=== PATIENT | male | born 1970 | race Two or more races ===

== ENCOUNTER 2019-07-08 23:30 | Emergency (ER) | payer OTHER ==
[~2019-07-08] VITALS: Ht 177.8 cm; Wt 99.8 kg
[2019-07-08] MEDS ORDERED: LIDOCAINE VISCOUS 2% UD 15 ML UDC ONE (23:57)
[2019-07-08] MEDS ORDERED: MAG HYDROX/AL HYDROX/SIMETH 30 ML UDC ONE (23:57)
[2019-07-09] MEDS ORDERED: MAG HYDROX/AL HYDROX/SIMETH 30 ML UDC PO ONE
[2019-07-09] MEDS ORDERED: LIDOCAINE VISCOUS 2% UD 15 ML UDC MM ONE
--- NOTE | 2019-07-09 00:44 | NUR ---
pt bibRA. C/O "HAVING EPIGASTRIC PAIN, FEELS LIKE GERD" -SOB AOX4. VSS. AMBULATORY
[2019-07-09] MEDS ORDERED: ACETAMINOPHEN ES 500 MG TABLET ONE (00:50)
[2019-07-09] MEDS ORDERED: ACETAMINOPHEN 325 MG TABLET PO ONE (01:00)
--- NOTE | 2019-07-09 01:19 | NUR ---
PT STATING: "FEELING MUCH BETTER AT THIS TIME, NO MORE EPIGASTRIC PAIN" PT MEDICATED FOR COMPLAINTS OF HEADACHE. VSS. AOX4. AMBULATORY.
[2019-07-09 01:30] VITALS: BP 138/84
[2019-07-12 10:40] LABS: HEMATOCRIT 45 % (39-51); HEMOGLOBIN 14.2 g/dL (13.5-17.5); MEAN CORPUSCULAR HGB CONC 32 g/dl (31.0-36.0); MEAN CORPUSCULAR VOLUME 80 fL (80-96); NEUTROPHILS % (AUTO) 60.8 % (43.0-81.0); PLATELET COUNT (AUTO) 316 /CMM (150-450); RED BLOOD CELL COUNT(AUTO) 5.58 MIL/uL (4.5-6.0); WHITE BLOOD COUNT (AUTO) 7.8 K/uL (4.3-11.0)
[2019-07-12 10:41] LABS: BASOPHILS % (AUTO) 0.5 % (0.0-2.0); LYMPHOCYTES # (AUTO) 2.2 /CMM (0.8-4.8); LYMPHOCYTES % (AUTO) 28.1 % (20.0-44.0); MONOCYTES # (AUTO) 0.6 /CMM (0.1-1.30); MONOCYTES % (AUTO) 7.6 % (2.0-12.0); NEUTROPHILS # (AUTO) 4.8 /CMM (1.8-8.9)
[2019-07-12 10:42] LABS: APPEARANCE,URINE CLEAR (CLEAR); BLOOD, URINE NEGATIVE Ery/uL (NEGATIVE); COLOR,URINE YELLOW (YELLOW); PROTEIN,URINE NEGATIVE (NEGATIVE); UGLUCOSE NEGATIVE (NEGATIVE)
[2019-07-12 10:43] LABS: BILIRUBIN,URINE NEGATIVE (NEGATIVE); KETONES,URINE NEGATIVE (NEGATIVE); LEUKOCYTE ESTERASE ,URINE NEGATIVE (NEGATIVE); NITRITE, URINE NEGATIVE (NEGATIVE); UROBILINOGEN,URINE 0.2 EU/dL (0.2)
== END 2019-07-09 01:31 | disposition home or self-care (01) ==
LOC: ER 23:33
DX: K29.70 Gastritis, unspecified, without bleeding (principal); J45.909 Unspecified asthma, uncomplicated; F43.10 Post-traumatic stress disorder, unspecified; F31.9 Bipolar disorder, unspecified; F20.9 Schizophrenia, unspecified; Z88.8 Allergy status to other drugs, medicaments and biological substances; Z88.1 Allergy status to other antibiotic agents; Z60.2 Problems related to living alone
CPT/HCPCS: 36415; 81000-TC; 85025-TC

== ENCOUNTER 2019-07-12 02:21 | Emergency (ER) | payer OTHER ==
--- NOTE | 2019-07-12 10:25 | NUR ---
LATE ENTRY: SEE PAPER CHARTING DUE TO DOWN TIME PROCEDURES
[2019-07-12 15:22] LABS: CALCIUM, SERUM 9.1 mg/dL (8.5-10.1); CARBON DIOXIDE 28 mmol/L (21-32); CHLORIDE 103 mmol/L (98-107); CREATININE 1.4 mg/dL (0.6-1.3); GLUCOSE 103 mg/dL (74-106); SODIUM SERUM 141 mmol/L (136-145); UREA NITROGEN, BLOOD 13 mg/dL (7-18)
[2019-07-12 15:23] LABS: ALANINE AMINOTRANSFERASE 32 U/L (12-78); ALBUMIN 4.4 g/dL (3.4-5.0); ALKALINE PHOSPHATASE 107 U/L (46-116); ASPARTATE AMINOTRANSFERASE 22 U/L (15-37); BILIRUBIN,TOTAL 0.3 mg/dL (0.2-1.0); SALICYLATE 2.4 mg/dL (2.8-20.0); THYROID STIMULATING HORMONE 3.883 uIU/mL (0.358-3.74); TOTAL PROTEIN, SERUM 8.5 g/dL (6.4-8.2)
[2019-07-12 15:24] LABS: ACETAMINOPHEN 0 ug/ml (10-30); ALCOHOL, BLOOD < 3 mg/dL (0-0)
== END 2019-07-12 06:10 ==
LOC: ER 02:21
DX: R45.851 Suicidal ideations (principal); J45.909 Unspecified asthma, uncomplicated; F43.10 Post-traumatic stress disorder, unspecified; F31.9 Bipolar disorder, unspecified; F20.9 Schizophrenia, unspecified; Z88.6 Allergy status to analgesic agent; Z88.1 Allergy status to other antibiotic agents; Z60.2 Problems related to living alone; Z88.8 Allergy status to other drugs, medicaments and biological substances
CPT/HCPCS: 36415; 80048; 80076; 80305; 80307; 80329; 84443; 99285; G0480

== ENCOUNTER 2020-01-04 03:14 | Emergency (ER) | payer OTHER ==
[~2020-01-04] VITALS: Ht 177.8 cm; Wt 108.9 kg
--- NOTE | 2020-01-04 03:28 | NUR ---
URINE SENT TO LAB
--- NOTE | 2020-01-04 03:28 | NUR ---
[id number] FROM HOME C/O GENERALIZED "TINGLING SENSATION" S/P "TAKING TOO MUCH CLINORIL, ROBAXIN, TRAZODONE" FACING BASTER, UNK DOSES. REPORTED TAKING 2 TABS OF TRAZODONE. DENIES SI/HI . ALERT AND RESPONSIVE. PT WAS PLACED ON A MONITOR . VSS. REMAINED ON CLOSE SUPERVISION FOR SAFETY
--- NOTE | 2020-01-04 03:31 | NUR ---
SOAP CHIPPER AT BEDSIDE FOR LABS
[2020-01-04 03:42] LABS: APPEARANCE,URINE Clear (CLEAR); BILIRUBIN,URINE Negative (NEGATIVE); BLOOD, URINE Trace-intact Ery/uL (NEGATIVE); COLOR,URINE Yellow (YELLOW); KETONES,URINE Negative (NEGATIVE); LEUKOCYTE ESTERASE ,URINE Negative (NEGATIVE); NITRITE, URINE Negative (NEGATIVE); PROTEIN,URINE 30 mg/dl (NEGATIVE); UGLUCOSE Negative (NEGATIVE); UROBILINOGEN,URINE 0.2 EU/dL (0.2)
[2020-01-04 03:47] LABS: CALCIUM, SERUM 9.1 mg/dL (8.5-10.1); CARBON DIOXIDE 27 mmol/L (21-32); CHLORIDE 104 mmol/L (98-107); CREATININE 1.6 mg/dL (0.6-1.3); GLUCOSE 92 mg/dL (74-106); POTASSIUM 3.3 mmol/L (3.5-5.1); SODIUM SERUM 138 mmol/L (136-145); UREA NITROGEN, BLOOD 17 mg/dL (7-18)
[2020-01-04 03:51] LABS: BASOPHILS % (AUTO) 0.4 % (0.0-2.0); EOSINOPHILS % (AUTO) 1.4 % (0.0-6.0); HEMATOCRIT 42 % (39-51); HEMOGLOBIN 13.8 g/dL (13.5-17.5); LYMPHOCYTES # (AUTO) 2.7 /CMM (0.8-4.8); LYMPHOCYTES % (AUTO) 37.6 % (20.0-44.0); MEAN CORPUSCULAR HGB CONC 33 g/dl (31.0-36.0); MEAN CORPUSCULAR VOLUME 77 fL (80-96); MONOCYTES # (AUTO) 0.7 /CMM (0.1-1.30); MONOCYTES % (AUTO) 9.3 % (2.0-12.0); NEUTROPHILS # (AUTO) 3.7 /CMM (1.8-8.9); NEUTROPHILS % (AUTO) 51.3 % (43.0-81.0); PLATELET COUNT (AUTO) 281 /CMM (150-450); RED BLOOD CELL COUNT(AUTO) 5.42 MIL/uL (4.5-6.0); WHITE BLOOD COUNT (AUTO) 7.2 K/uL (4.3-11.0)
[2020-01-04 03:52] LABS: ALANINE AMINOTRANSFERASE 48 U/L (12-78); ALBUMIN 4.2 g/dL (3.4-5.0); ALCOHOL, BLOOD < 3 mg/dL (0-0); ALKALINE PHOSPHATASE 114 U/L (46-116); ASPARTATE AMINOTRANSFERASE 32 U/L (15-37); BILIRUBIN,DIRECT 0.1 mg/dL (0.0-0.2); BILIRUBIN,TOTAL 0.3 mg/dL (0.2-1.0); TOTAL PROTEIN, SERUM 8.1 g/dL (6.4-8.2)
[2020-01-04 03:54] LABS: ACETAMINOPHEN 0 ug/ml (10-30); SALICYLATE 2.3 mg/dL (2.8-20.0)
[2020-01-04 03:58] LABS: BACTERIA,URINE Few /HPF (None Seen); SQUAMOUS EPITHELIAL CELL,UR Rare /HPF (None Seen)
--- NOTE | 2020-01-04 05:40 | NUR ---
Patient discharged to home in stable condition. Written and verbal after care instructions given. Patient verbalizes understanding of instruction. Pt ambulated with gait.
[2020-01-04 05:49] VITALS: BP 121/75
== END 2020-01-04 05:49 | disposition home or self-care (01) ==
LOC: ER 03:14
DX: T42.4X1A Poisoning by benzodiazepines, accidental (unintentional), initial encounter (principal); R94.31 Abnormal electrocardiogram [ECG] [EKG]; J45.909 Unspecified asthma, uncomplicated; F43.10 Post-traumatic stress disorder, unspecified; F31.9 Bipolar disorder, unspecified; Z88.8 Allergy status to other drugs, medicaments and biological substances; Y92.89 Other specified places as the place of occurrence of the external cause
CPT/HCPCS: 36415; 80048; 80076; 80305; 80307; 80329; 81001; 85025; 87086; 93005; 99284; G0480; 81000-TC